=== PATIENT | male | born 1950 | race Caucasian/White ===

== ENCOUNTER 2018-04-18 08:02 | Observation (INO) ==
--- NOTE | 2018-04-18 08:09 | PDOC ---
Chest Pain HPI - General Chief Complaint: Chest Pain Stated Complaint: SYNCOPAL EPISODE Date Seen by Provider: 04/18/18 Time Seen by Provider: 08:09 Source: Patient Exam Limitations: POSITIVE: No limitations Treatment Prior to Arrival: REPORTS: None - History of Present Illness Initial Comments: Patient is a 68-year-old male who presents to the emergency department with syncopal events. Patient reports she's had at least 3 of last week. 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 Patient reports he gets lightheaded and dizzy and passes out. Patient reports afterwards he feels like he is "rolling". Patient reports he has had some associated chest discomfort. And some minimal back pain. Patient also describes some component of headache. He reports that he gets nauseous and has minimal abdominal discomfort. 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 - Patient Home Medications Home Medications: Home Medications rivaroxaban 20 mg tablet 20 mg PO QDAY #30 tab 03/10/18 - Patient Allergies Allergies/Adverse Reactions: Allergies Allergy/AdvReac Type Severity Reaction Status Date / Time latex Allergy Severe eczema Verified 04/18/18 08:23 ciprofloxacin Allergy Intermediate RASH Verified 04/18/18 08:23 Penicillins Allergy Intermediate ITCHING Verified 04/18/18 08:23 Past Medical History - heen HEENT History: Other (please comment) Additional HEENT History: Rt eye surgery Cardiovascular History: Denies History Respiratory History: Denies History Gastrointestinal History: Denies History Genitourinary History: Denies History Endocrine History: Denies History Musculoskeletal History: Joint Pain Prosthesis or Implant: No Neurological History: Denies History Blood Disorders: Other (please comment) Additional Blood Disorders History: PULM EMBOLISM Psychiatric History: Denies History Cancer History: Denies History History of MDRO: No Alcohol Use: Rarely In the Past 12 Months, Have Used or Abuse Any Substance: None Previous Surgical History: Yes Type / Date of Surgery: KNEE, EYE Significant Family History: No pertinent family hx Past Medical History Reviewed: Reviewed - No Changes ROS - Limitations ROS Limitations: No Limitations Constitution: DENIES: Chills, Fever Cardiovascular: REPORTS: Chest Pain Respiratory: REPORTS: Denies Resp Symptoms Neurological: REPORTS: Headache, Dizziness, Fainting Gastrointestinal: REPORTS: Abdominal Pain, Nausea Endocrine: REPORTS: Denies Symptoms Musculoskeletal: REPORTS: Back Pain Genitourinary: REPORTS: Denies Symptoms Eyes: REPORTS: Denies Symptoms ENT: REPORTS: Denies Symptoms Skin: REPORTS: Denies Skin Symptoms Lympathic: REPORTS: Denies Lympathic Symptoms Immunologic: POSITIVE: Denies Symptoms Psychiatric: POSITIVE: Denies Psych Symptoms Chest Pain PE - General Appearance General Appearance: REPORTS: Alert, Cooperative, No Acute Distress, No Evidence of Trauma - HEENT HEENT: POSITIVE: Head Inspection Nml, Eyes Inspection Nml, PERRL, EOMI - Neck Neck: REPORTS: Normal Inspection - Respiratory Respiratory: REPORTS: No Respiratory Distress, Breath Sounds Normal, Chest Non- Tender. DENIES: Wheezes - Cardiovascular Cardiovascular: REPORTS: Regular Rate and Rhythm, Heart Sounds Normal, Equal Pulses, Strong Pulses, No Murmur, No Gallop - Abdomen Additional Abdominal Details: Soft no tenderness to palpation - Skin Skin: REPORTS: Intact, Normal For Race, Dry - Extremities Additional Extremities Details: No edema in the lower extremities - Neurological / Psychological Neurological: POSITIVE: Affect Apporpriate, Oriented X3, Other (Finger to nose testing is normal.) Chest Pain Progress - Results Reviewed by me CBC and BMP: 04/18/18 08:20 04/18/18 08:20 Lab Results:: Laboratory Results 04/18/18 04/18/18 04/18/18 08:20 08:20 08:20 WBC 6.30 RBC 5.82 Hgb 18.4 H Hct 51.4 MCV 88.3 MCH 31.6 H MCHC 35.8 RDW Std Deviation 41.7 RDW Coeff of Joao 13.0 Plt Count 161 MPV 10.7 Immature Gran % (Auto) 0.6 Neut % (Auto) 61.4 Lymph % (Auto) 31.1 [place] % (Auto) 4.6 L Eos % (Auto) 1.7 Baso % (Auto) 0.6 Immature Gran # (Auto) 0.04 Neut # (Auto) 3.86 Lymph # (Auto) 1.96 [place] # (Auto) 0.29 L Eos # (Auto) 0.11 Baso # (Auto) 0.04 WBC Morphology Comment Normal morphology Plt Morphology Comment Normal morphology RBC Morph Comment Normal morphology PT 10.2 INR 1.00 Sodium 141 Potassium 4.1 Chloride 105 Carbon Dioxide 24 Anion Gap 12 BUN 23 H Creatinine 1.0 Estimated GFR > 60 BUN/Creatinine Ratio 23.00 H Glucose 321 H Calculated Osmolality 307.0 H Calcium 9.9 Magnesium 2.0 Total Bilirubin 1.0 AST 36 ALT 30 Alkaline Phosphatase 96 Troponin I Handheld Total Protein 6.8 Albumin 4.2 Globulin 2.6 Albumin/Globulin Ratio 1.60 04/18/18 08:20 WBC RBC Hgb Hct MCV MCH MCHC RDW Std Deviation RDW Coeff of Joao Plt Count MPV Immature Gran % (Auto) Neut % (Auto) Lymph % (Auto) [place] % (Auto) Eos % (Auto) Baso % (Auto) Immature Gran # (Auto) Neut # (Auto) Lymph # (Auto) [place] # (Auto) Eos # (Auto) Baso # (Auto) WBC Morphology Comment Plt Morphology Comment RBC Morph Comment PT INR Sodium Potassium Chloride Carbon Dioxide Anion Gap BUN Creatinine Estimated GFR BUN/Creatinine Ratio Glucose Calculated Osmolality Calcium Magnesium Total Bilirubin AST ALT Alkaline Phosphatase Troponin I Handheld 0.000 Total Protein Albumin Globulin Albumin/Globulin Ratio - Patient's Progress MDM / ED Course: Patient is a 68-year-old male who presents to the emergency department with sy ncope and chest discomfort. Vital signs are unremarkable and examination of charts overall well-appearing male in no acute distress. EKG demonstrates no evidence of acute ST changes. Initial troponin is negative. No evidence of arrhythmia on monitoring her EKG. Chemistry panel CT scan of the head and chest external pending at this time. CBC was unremarkable. Patient's care is turned over to oncoming physician for further evaluation. Patient Care Time - Estimated PCT Patient Care Time (In Minutes): 35 Vital Signs - Recent Vital Signs Vital Signs: Vital Signs (Last 8 hours) Temp Pulse Pulse Pulse Pulse Resp BP 04/18/18 08:02 97.0 F 73 70 73 73 18 158/93 Pulse Ox 04/18/18 08:02 92 - VS Reviewed Vital Signs Reviewed: Yes Discharge Clinical Impression: Syncope Qualifiers: Syncope type: unspecified Qualified Code(s): R55 - Syncope and collapse Chest pain Qualifiers: Chest pain type: unspecified Qualified Code(s): R07.9 - Chest pain, unspecified Follow Up With: NONE,NONE [Primary Care Provider] -
--- NOTE | 2018-04-18 08:11 | EKG ---
[address] [address] Measurements Intervals [place] Rate: 70 P: 30 VT: 140 QRS: 7 QRSD: 106 T: 46 QT: 395 QTc: 415 Interpretive Statements SINUS RHYTHM WITH SINUS ARRHYTHMIA NONSPECIFIC T-WAVE ABNORMALITY Compared to ECG 08/02/2017 10:53:55 T-wave abnormality now present Electronically Signed On 04-18-18 11:12:07 MDT by Alberto Martinez MD [email or web address]
[2018-04-18 08:22] LABS: BASOPHILS # (AUTO) 0.04 10*3/UL; BASOPHILS % (AUTO) 0.6 % (0-1); EOSINOPHILS # (AUTO) 0.11 10*3/UL; EOSINOPHILS % (AUTO) 1.7 % (0-8); Hematocrit [HCT] 51.4 % (42.0-52.0); Hemoglobin [HGB] 18.4 g/dL (14.0-18.0); LYMPHOCYTES # (AUTO) 1.96 10*3/uL; MEAN CORPUSCULAR HEMOGLOBIN 31.6 PG (27-31); MEAN CORPUSCULAR HGB CONC 35.8 g/dL (33-37); MEAN CORPUSCULAR VOLUME 88.3 FL (80-90); MEAN PLATELET VOLUME 10.7 FL (7.4-12.2); MONOCYTES # (AUTO) 0.29 10*3/UL (0.3-0.8); MONOCYTES % (AUTO) 4.6 % (5-15); NEUTROPHILS # (AUTO) 3.86 10*3/UL; NEUTROPHILS % (AUTO) 61.4 % (50-80); RED BLOOD COUNT 5.82 10^6/uL (4.70-6.10)
[2018-04-18 08:29] LABS: PLATELET MORPHOLOGY COMMENT NORMAL MORPHOLOGY (NORM); RBC MORPHOLOGY COMMENT NORMAL MORPHOLOGY (NORM); WBC MORPHOLOGY COMMENT NORMAL MORPHOLOGY (NORM)
[2018-04-18 08:56] LABS: BLOOD UREA NITROGEN 23 mg/dL (7-22); SERUM ALBUMIN 4.2 g/dL (3.5-4.8)
--- NOTE | 2018-04-18 08:56 | DI ---
AP CHEST X-RAY, 04/18/2018 8:09 AM : Clinical History: Syncope. Previous Exam: None at this facility. Soft Tissues: No acute soft tissue abnormality. Bones: Normal. Heart: Normal heart. Lungs: No infiltrates. Mild discoid atelectasis in the left costophrenic angle. Effusion(s): None. Mediastinum: Normal mediastinum. Nodules: No pulmonary nodules. Reading: Normal chest x-ray.
--- NOTE | 2018-04-18 09:40 | DI ---
CT HEAD SCAN WITHOUT IV CONTRAST, 04/18/2018 8:21 AM : Clinical History: Headache. Dizziness. Syncope. The patient is anticoagulated. Previous Exam: 07/17/2011. Technique: Performed from the foramen magnum to vertex without IV contrast. Contrast Volume: None. 4th Ventricle: Normal. 3rd Ventricle: Mildly dilated, but normal for age. Lateral Ventricles: Mildly dilated, but normal for age. Sella: Normal size and normal pituitary gland. Cerebrum: Normal. No acute intracranial hemorrhagic focus. No acute bland infarct. No small vessel is chemic disease. Cerebellum: Normal. No cerebellopontine angle mass. Normal cerebellar tonsillar position. Brainstem: Normal. Atrophy: Mild cerebellar and cerebral atrophy. Extracerebral Mantles/Midline Shift: No extracerebral mantle or dural lesion. No midline shift. Sinuses: Mucosal thickening of the left maxillary sinus. Skull: Intact. READIN. There is no acute intracranial hemorrhagic focus. No acute bland infarct. 2. Mild cerebellar and cerebral atrophy.
[2018-04-18] MEDS ORDERED: LIDOCAINE W/ SODIUM BICARB 0.5 ML SYR SUBD PRN (11:32)
[2018-04-18] MEDS ORDERED: Sodium Chloride 0.9% 1,000 ML PRIMARY IV ONE (11:32)
[2018-04-18 11:47] LABS: HEMOGLOBIN A1C 11.57 % (4.2-6.0)
--- NOTE | 2018-04-18 12:57 | PDOC ---
HPI - History of Present Illness Date of Service: 04/18/18 Time of Service: 12:52 Chief Complaint: passing out History of Present Illness: This very and 68-year-old male with history of prior DVT left lower extremity, and remote history of prior DVTs, comes in accompanied by his stating that he has had some episodes where he has been passing out. They've been happening more frequently the past two weeks. He did not actually have a syncopal episode today, but states that these episodes started around 2 years ago. His first one happened standing on a scaffold and walking into an open window in his home. He states the events over the past 2 weeks or very similar to that in which he's had some headaches, they're been somewhat migratory in terms of location, occasionally not feeling well prior to that but not consistently, and he states that he finds himself down on the ground. He denies any chest pain or shortness breath with these episodes. He states that he has some vertigo that persists for about 10 minutes or longer with each episode. No loss of bowel or bladder and he has recall of the events. 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 Given these continued episodes, the patient came in for evaluation today. He denies any chest pain, shortness breath, nausea or vomiting to me. He does get nauseous with these episodes however. He was found to have a high blood sugar and I did a hemoglobin A1c and it was actually well over 11. He does note that he has had about 38 pounds of weight loss, and urinates frequently at night but he attributed that to his prostate. He has minimal to no postural symptoms, and his orthostatic blood pressures were negative. He did state that he felt somewhat dizzy when he was standing up, but had no change in his blood pressure. He feels like he has a little worsening of symptoms when he turns his head to the left. He complains of tinnitus daily. There is no prodromal symptoms. He states that he had 2 episodes recently where he was going to urinate at nighttime, but he states that he was not straining with urination. He's never had any constipation induced syncopal episodes. He has not had any loss of urine or tongue biting with these episodes. His position at different times of these syncopal episodes has been sitting or standing. Past Medical History Medical History: 1. History of DVTs, recent one in the left lower extremity Surgical History: 1. Has had 3 knee scopes, one on the right and 2 on the left. 2. Carpal tunnel release. 3. Remote eye surgery for lazy eye Pertinent Family History: Father of lung cancer. Mother of congestive heart failure. Tobacco Use: Former Smoker (Quit in 1979) In the Past 12 Months, Have Used or Abuse Any of the Following Substance: None Alcohol Use: Occasionally Medication / Allergies Home Medications: Home Medications Medication Instructions Recorded Confirmed Type rivaroxaban 20 mg tablet 20 mg PO QDAY #30 tab 03/10/18 04/18/18 Rx Allergies/Adverse Reactions: Allergies Allergy/AdvReac Type Severity Reaction Status Date / Time latex Allergy Severe eczema Verified 04/18/18 08:23 ciprofloxacin Allergy Intermediate RASH Verified 04/18/18 08:23 Penicillins Allergy Intermediate ITCHING Verified 04/18/18 08:23 Review of Systems - Review of Systems All Systems: Reviewed & No Additional Complaints Except as Stated (I did a 12 point review systems and it was negative other than that discussed below and in the history of present illness.) - Genitourinary Genitourinary: REPORTS: Nocutria - Neurological Neurologic: REPORTS: Headache (Over the past 2 weeks.) Exam - Vitals Vital Signs: Vital Signs Temperature 97.8 F Temperature Source Temporal Artery Scan Pulse Rate [Pulse Oximeter 67 Right] Pulse Rate [Telemetry] 73 Pulse Rate [Bilateral Radial] 70 Pulse Rate [Standing] 71 Pulse Rate [Sitting] 67 Pulse Rate [Lying] 79 Pulse Rate 73 Respiratory Rate 19 Blood Pressure [Standing] 118/75 Blood Pressure [Sitting] 126/77 Blood Pressure [Lying] 123/70 Blood Pressure [Left Arm] 126/77 Pulse Ox 95 Oxygen Delivery Method Room Air Height 6 ft 3 in Weight 260 lb - General General Appearance: No Acute Distress, Cooperative - Head Head Exam: Normal Inspection, Normocephalic, Atraumatic - Eye Eye Exam: POSITIVE: No Scleral Icterus - ENT ENT Exam: POSITIVE: Mucous Membranes Moist - Neck Neck Exam: Normal Inspection, No Tenderness, No Lymphadenopathy, No Thyromegaly, JVP is not Raised - Respiratory Respiratory Exam: POSITIVE: Clear to Auscultation - Bilaterally, Breathing Non Labored, Normal to Percussion and Palpation - Cardiovascular Cardiovascular Exam: POSITIVE: RRR, No Murmur, No Clicks, No Gallops, No Rubs, No JVD Additional Cardiovascular Details: No carotid bruits - GI/Abdominal GI/Abdominal Exam: POSITIVE: Normal Bowel Sounds, Non Tender, Non Distended, So ft - Rectal Rectal Exam: POSITIVE: Deferred - External Exam: POSITIVE: Deferred Exam: POSITIVE: Deferred - Extremities Extremities Exam: POSITIVE: No Clubbing Present, No Edema Present, No Cyanosis Present Additional Extremities Exam Details: Has chronic venous stasis changes from prior injury in which he was smashed with concrete in the left lower extremity - Back Back Exam: POSITIVE: No CVA Tenderness - Neurological Neurological Exam: POSITIVE: Alert, Oriented x 3, CN II-XII Intact, No Facial Droop, Speech Intact / Clear, Moves All Extremities Equally - Psychiatric Psychiatric Exam: POSITIVE: Normal Affect, Normal Mood Results - Labs CBC and BMP: 04/18/18 08:20 04/18/18 08:20 Additional Lab Results: Laboratory Results 04/18/18 04/18/18 04/18/18 08:10 08:10 08:20 WBC 6.30 RBC 5.82 Hgb 18.4 H Hct 51.4 MCV 88.3 MCH 31.6 H MCHC 35.8 RDW Std Deviation 41.7 RDW Coeff of Joao 13.0 Plt Count 161 MPV 10.7 Immature Gran % (Auto) 0.6 Neut % (Auto) 61.4 Lymph % (Auto) 31.1 [place] % (Auto) 4.6 L Eos % (Auto) 1.7 Baso % (Auto) 0.6 Immature Gran # (Auto) 0.04 Neut # (Auto) 3.86 Lymph # (Auto) 1.96 [place] # (Auto) 0.29 L Eos # (Auto) 0.11 Baso # (Auto) 0.04 WBC Morphology Comment Normal morphology Plt Morphology Comment Normal morphology RBC Morph Comment Normal morphology PT INR Sodium Potassium Chloride Carbon Dioxide Anion Gap BUN Creatinine Estimated GFR BUN/Creatinine Ratio Glucose Mean Blood Glucose 299.281 Hemoglobin A1c 11.57 H Calculated Osmolality Calcium Magnesium Total Bilirubin AST ALT Alkaline Phosphatase Troponin I Handheld Total Protein Albumin Globulin Albumin/Globulin Ratio TSH 3.06 Free T4 1.23 04/18/18 04/18/18 04/18/18 08:20 08:20 08:20 WBC RBC Hgb Hct MCV MCH MCHC RDW Std Deviation RDW Coeff of Joao Plt Count MPV Immature Gran % (Auto) Neut % (Auto) Lymph % (Auto) [place] % (Auto) Eos % (Auto) Baso % (Auto) Immature Gran # (Auto) Neut # (Auto) Lymph # (Auto) [place] # (Auto) Eos # (Auto) Baso # (Auto) WBC Morphology Comment Plt Morphology Comment RBC Morph Comment PT 10.2 INR 1.00 Sodium 141 Potassium 4.1 Chloride 105 Carbon Dioxide 24 Anion Gap 12 BUN 23 H Creatinine 1.0 Estimated GFR > 60 BUN/Creatinine Ratio 23.00 H Glucose 321 H Mean Blood Glucose Hemoglobin A1c Calculated Osmolality 307.0 H Calcium 9.9 Magnesium 2.0 Total Bilirubin 1.0 AST 36 ALT 30 Alkaline Phosphatase 96 Troponin I Handheld 0.000 Total Protein 6.8 Albumin 4.2 Globulin 2.6 Albumin/Globulin Ratio 1.60 TSH Free T4 - EKG Data -: EKG Interpreted by Me Rate: Normal EKG Shows Normal: Sinus Rhythm - EKG Data EKG Interpretation: Nonspecific ST-T Wave Changes (T-wave flattening in aVL) - Imaging Status: Image Reviewed by Me (Chest x-ray appears negative on my view for acute cardiopulmonary disease process. CT scan of head negative for acute bleed.) Assessment and Plan - Patient Problems (1) Syncope Current Visit: Yes Status: Acute Code(s): R55 - Syncope and collapse Qualifiers: Syncope type: unspecified Qualified Code(s): R55 - Syncope and collapse (2) Poorly controlled type 2 diabetes mellitus Current Visit: Yes Status: Acute Code(s): E11.65 - Type 2 diabetes mellitus with hyperglycemia (3) History of DVT of lower extremity Current Visit: Yes Status: Acute Code(s): Z86.718 - Personal history of other venous thrombosis and embolism - Assessment / Plan Additional Assessment/Plan Details: Overall, I suspect this is probably neurocardiogenic syncope neurally mediated or vasovagal syncope, but he has some features that do not necessarily fit that pattern. It could also be related to newly diagnosed diabetes. He states however that people tested him for years but he's never been formally diagnosed with diabetes. With some of the dizziness and symptoms getting worse with head turning, I think we should check carotid arteries and get an MRI scan of the brain as well as MRA scan of head and neck. I'm going to do troponins to make sure not dealing with a myocardial infarction although I doubt that some cases troponin is initially is negative. Patient may warrant a stress test. Echocardiogram to evaluate structural heart disease and valvular abnormalities. Telemetry monitoring here. We will start dietary interventions and dietary education for diabetes as well as institute metformin most likely for diabetes. We may have to wait until the hospital stay is done however as I would like to not have issues with metformin and lactic acidosis in the setting of testing. Patient is full code. Nothing in the electrolytes point to any discernible reason for his syncopal episodes. Plan above discussed with the patient and his and they agreed to proceed.
[2018-04-18] MEDS: Sodium Chloride 0.9% 1,000 ML PRIMARY IV SCH ×2 (13:50→21:55)
--- NOTE | 2018-04-18 15:10 | DI ---
MR ANGIOGRAPHY OF THE [place] [facility] [place], 04/18/2018 12:10 PM: Clinical History: Syncope. Previous Exam: None at this facility. Technique: High resolution axial 3D thin slice time of flight scans are performed for the arterial ph ase. 3D MIPS reconstructions are obtained. Vertebral Arteries: The vertebral arteries are not visualized on this study. The patient does have an MR angiogram of the neck. Basilar Artery: Normal. There is no basilar tip aneurysm or aneurysm arising from the vertebral-basil ar branches. Posterior Communicating Arteries: There is a small normal right posterior communicating artery and no discernible left posterior communicating artery. Anterior Communicating Artery: Normal anterior communicating artery. A1-A2 Segments of Anterior Cerebral Arteries: Normal. The left A1 segment is diminutive in size but n ormal. M1-M3 Segments of Middle Cerebral Arteries: Normal. Reading: Normal MR angiogram scan of the [place] [facility] [place].
--- NOTE | 2018-04-18 15:55 | DI ---
MR ANGIOGRAM OF THE NECK, 04/18/2018 12:10 PM: Clinical History: Syncope. Previous Exam: None at this facility. Axial 3D TOF and coronal T-SLIP images are reconstructed into a 3D MIP format. Scans are performed from below the sternal notch to of the neck to the base of the skull without cont rast. The right common carotid artery is normal from its origin to the bifurcation. The left common carotid origin is normal and the proximal 3 cm are also normal. From this point to the base of the neck, the artery is not well visualized but does show flow. The left common carotid artery distal to this poin t to the bifurcation is normal. The internal and external carotid arteries in the neck region are nor mal. The internal carotid arteries from the base of the skull to the cavernous sinuses are also estefany l. The innominate artery is normal. The left subclavian artery is not optimally visualized from 1 cm distal to its origin to the origin of the left vertebral artery. The difficulty in visualizing the pr oximal portions of the left common carotid artery and the left subclavian artery are probably all sec ondary to artifacts. However, the left vertebral artery is quite large. Both vertebral arteries are v isualized and are normal. The left vertebral artery is the dominant vessel. READIN. There is a large dominant left vertebral artery that is normal from the origin to the base of the skull. The left subclavian artery just proximal to the left vertebral artery is not well visualized. Because of the history of syncope, measurement of blood pressures of both arms are recommended. If t here is diminished pulses and decreased blood pressure in the left arm, then the possibility of a lef t subclavian steal should be considered. In that case, a CT angiogram of the neck as well as ultrasou nd of the carotid and vertebral arteries would be recommended to establish a diagnosis of a left subc lavian steal syndrome. 2. The proximal left common carotid artery also is not well visualized probably secondary to artifac ts. The right common carotid artery from its origin to the bifurcation and the left common carotid ar tomer above the origin to the bifurcation are normal. The internal and external carotid arteries are u nremarkable in are visualized through the neck and up to the base of the skull. 3. Both vertebral arteries are normal and the left vertebral artery is large and is the dominant ves roque.
--- NOTE | 2018-04-18 16:34 | DI ---
MRI BRAIN SCAN WITHOUT IV CONTRAST, 04/18/2018 12:10 PM: Clinical History: Syncope. Prior Exam: None at this facility. Comparison Exam: CT head scan without contrast from earlier today. Sequences: Sagittal T1; Axial WILMER T2 and FLAIR. Axial diffusion weighted images with ADC mapping. 4th Ventricle: Normal. 3rd Ventricle: Mildly dilated, but normal for age. Lateral Ventricles: Mildly dilated, but normal for age. Sella: Normal size and normal pituitary gland. Cerebrum: Normal. No evidence of an acute hemorrhagic or bland infarct. No small vessel ischemic dise ase. Cerebellum: Normal. No cerebellopontine angle mass. Cerebellar Tonsils: Normal position. Brainstem: Normal. Diffusion Weighted Imaging: Normal. Atrophy: Mild cerebellar and cerebral atrophy. Extracerebral Mantles/Midline Shift: No extracerebral mantle or dural lesion. No midline shift. Sinuses: Left maxillary sinus mucosal thickening with some hypointensities present most likely repres enting small polyps. Readin. No evidence of an acute hemorrhagic or bland infarct. No small vessel ischemic disease. 2. Mild cerebral and cerebellar atrophy. 3. Normal diffusion weighted imaging with ADC mapping.
[2018-04-18] MEDS ORDERED: Rivaroxaban Tab 10 MG TAB PO SCH (17:00)
[2018-04-18] MEDS ORDERED: Insulin Glargine SoloStar Inj 100 UNIT/ML INSULN.PEN SUBCUT ONE (21:25)
[2018-04-18] MEDS ORDERED: SUMAtriptan Tab 25 MG TAB PO ONE (21:26)
[2018-04-19 06:58] VITALS: RESP 18
[2018-04-19] MEDS ORDERED: metFORMIN 500 MG TABLET PO ONE ×2 (08:00→11:45)
--- NOTE | 2018-04-19 09:20 | DI ---
DUPLEX COLOR DOPPLER CAROTID ULTRASOUND, 04/18/2018 5:24 PM: Clinical History: Syncope Previous Exam: None at this facility. Technique: 2D real time imaging supplemented with duplex color doppler ultrasound imaging. Right Common Carotid Artery: 2-D Real Time Imaging: Normal right common carotid artery with minimal plaquing in the carotid bulb. Peak Systolic Velocity: 110 cm/sec. Diameter Stenosis: 0-49% stenosis. Right Internal Carotic Artery: 2-D Real Time Imaging: Normal. Peak Systolic Velocity: 87 cm/sec. Diameter Stenosis: 0-49% stenosis. Right External Carotid Artery: 2-D Real Time Imaging: Normal. Peak Systolic Velocity: 115 cm/sec. Diameter Stenosis: 0-49% stenosis. Left Common Carotid Artery: 2-D Real Time Imaging: Normal. Peak Systolic Velocity: 120 cm/sec. Diameter Stenosis: 0-49% stenosis. Left Internal Carotic Artery: 2-D Real Time Imaging: Normal. Peak Systolic Velocity: 88 cm/sec. Diameter Stenosis: 0-49% stenosis. Left External Carotid Artery: 2-D Real Time Imaging: Normal. Peak Systolic Velocity: 111 cm/sec. Diameter Stenosis: 0-49% stenosis. Right Vertebral Artery: Flow Direction: Antegrade flow. Peak Systolic Velocity: 50 cm/sec. Diameter Stenosis: 0-49% stenosis. Left Vertebral Artery: Flow Direction: Antegrade flow. Peak Systolic Velocity: 74 cm/sec. Diameter Stenosis: 0-49% stenosis. Readin. There is no hemodynamically significant stenosis of either carotid system. 2. There is antegrade flow through both vertebral arteries. This eliminates the possibility of a lef t subclavian steal syndrome. Cardiac rhythm is regular.
[2018-04-19 11:41] VITALS: O2SAT 92
[2018-04-19 11:42] VITALS: BP 141/82; TEMP 97.2
--- NOTE | 2018-04-19 12:39 | DCSUMMARY ---
Hospitalization Summary Admit Date: 04/18/2018 Discharge Date: 04/19/18 Primary Diagnosis:: syncope, probably neural mediated with hyperglycemia Hospital Course: This is a very pleasant 68-year-old male that was admitted in the setting of syncopal episodes. Workup thus far has been negative for stroke, negative for carotid artery disease, no evidence of orthostatic hypotension, but he is newly onset/newly diagnosed diabetes mellitus type II. His hemoglobin A1c was almost 12. I suspect the high blood sugars are causing some dizziness, lightheadedness, and symptoms of polyuria. We did not see any arrhythmias with cardiac monitoring, but will order a Holter monitor when the patient leaves the hospital. An echocardiogram will be done as an outpatient as I do not have the capability of doing that in the hospital without a fresh foods technician. I will also order a Lexiscan stress test to look for potential coronary artery disease although this would be rare in the setting of syncope and the patient certainly had no anginal chest pain symptoms here and no shortness breath and now those symptoms with his syncopal episodes. Given diabetes as a coronary heart disease risk equivalent, I think it makes sense to conduct a stress test to see. That will be done as an outpatient as well. Again the option to the patient and his of staying here for these tests but they agreed that doing an outside the hospital seems to be the best option for them. We provided diabetes education prior to discharge as well as a glucose monitor, and the patient will go home on metformin starting at 1 tablet daily. Today, headache is significantly improved. No nausea or vomiting. No further syncopal episodes. Patient is "ready to go home". Assessment and Plan: 1. As per discharge assessments noted 2. Disposition: Patient is discharged home. 3. Condition on discharge, stable and improved. 4. Diet: regular diet 5. Activities: resume normal activities 6. Follow-Up: 1. Medical office building follow-up will be scheduled within approximately 7 days 7. Medications at the Time of Discharge: Home Medications Medication Instructions Recorded Confirmed Type rivaroxaban 20 mg tablet 20 mg PO QDAY #30 tab 03/10/18 04/18/18 Rx Multivitamin Tab [Thera Tab] 1 tab PO DAILY 04/19/18 04/19/18 History metFORMIN Tab [Glucophage Tab] 500 mg PO BID MEALS #60 tab 04/19/18 Rx This is an observation discharge Exam - Vitals Vital Signs: Vital Signs Temperature 97.2 F Temperature Source Temporal Artery Scan Pulse Rate [Pulse Oximeter 67 Right] Pulse Rate [Telemetry] 73 Pulse Rate [Bilateral Radial] 70 Pulse Rate [Standing] 83 Pulse Rate [Sitting] 69 Pulse Rate [Lying] 62 Pulse Rate 58 Respiratory Rate 18 Blood Pressure [Right Arm] 141/82 Blood Pressure [Left Arm] 126/77 Pulse Ox 92 Oxygen Flow Rate 2 Oxygen Delivery Method Nasal Cannula Height 6 ft 3 in Weight 256 lb 6.4 oz - General General Appearance: No Acute Distress, Cooperative - Eye Eye Exam: POSITIVE: No Scleral Icterus - Neck Neck Exam: JVP is not Raised - Respiratory Respiratory Exam: POSITIVE: Clear to Auscultation - Bilaterally, Breathing Non Labored - Cardiovascular Cardiovascular Exam: POSITIVE: RRR, No Murmur, No Clicks, No Gallops, No Rubs, No JVD - GI/Abdominal GI/Abdominal Exam: POSITIVE: Normal Bowel Sounds, Non Tender, Non Distended, Soft - Extremities Extremities Exam: POSITIVE: No Clubbing Present, No Edema Present, No Cyanosis Present - Neurological Neurological Exam: POSITIVE: Alert, Oriented x 3, No Facial Droop, Speech Intact / Clear, Moves All Extremities Equally Data Peritnent Studies: Laboratory Results 04/18/18 04/18/18 04/19/18 15:20 21:21 05:15 Troponin I < 0.012 < 0.012 NT-Pro-B Natriuret Pep 160 H 04/18/18 04/18/18 04/18/18 08:10 08:10 08:20 WBC 6.30 Hgb 18.4 H Hct 51.4 Plt Count 161 PT INR Sodium Potassium Chloride Carbon Dioxide Anion Gap BUN Creatinine Glucose Mean Blood Glucose 299.281 Hemoglobin A1c 11.57 H Calculated Osmolality Calcium Magnesium Total Bilirubin AST ALT Alkaline Phosphatase Troponin I Handheld Total Protein Albumin Globulin Albumin/Globulin Ratio TSH 3.06 Free T4 1.23 04/18/18 04/18/18 04/18/18 08:20 08:20 08:20 WBC Hgb Hct Plt Count PT 10.2 INR 1.00 Sodium 141 Potassium 4.1 Chloride 105 Carbon Dioxide 24 Anion Gap 12 BUN 23 H Creatinine 1.0 Glucose 321 H Mean Blood Glucose Hemoglobin A1c Calculated Osmolality 307.0 H Calcium 9.9 Magnesium 2.0 Total Bilirubin 1.0 AST 36 ALT 30 Alkaline Phosphatase 96 Troponin I Handheld 0.000 Total Protein 6.8 Albumin 4.2 Globulin 2.6 Albumin/Globulin Ratio 1.60 TSH Free T4 Procedures: [address] [facility] [place] [address] PH: DD: [phone] FAX: [phone] ~DIAGNOSTIC IMAGING REPORT~ Patient: MIRANDA BARAJAS : 1950 Sex: M Age: 68 Exam Name: US Carotids Bilateral Exam Date: 04/18/18 Report # : [id number] CPT Code: 57770 EMR/MR #: [id number] Ordering: RUPESH LEY Admiting: RUPESH LEY DO Primary: NONE,NONE Attending: RUPESH LEY DO Signed DUPLEX COLOR DOPPLER CAROTID ULTRASOUND, 04/18/2018 5:24 PM: Clinical History: Syncope Previous Exam: None at this facility. Technique: 2D real time imaging supplemented with duplex color doppler ultrasound imaging. Right Common Carotid Artery: 2-D Real Time Imaging: Normal right common carotid artery with minimal plaquing in the carotid bulb. Peak Systolic Velocity: 110 cm/sec. Diameter Stenosis: 0-49% stenosis. Right Internal Carotic Artery: 2-D Real Time Imaging: Normal. Peak Systolic Velocity: 87 cm/sec. Diameter Stenosis: 0-49% stenosis. Right External Carotid Artery: 2-D Real Time Imaging: Normal. Peak Systolic Velocity: 115 cm/sec. Diameter Stenosis: 0-49% stenosis. Left Common Carotid Artery: 2-D Real Time Imaging: Normal. Peak Systolic Velocity: 120 cm/sec. Diameter Stenosis: 0-49% stenosis. Left Internal Carotic Artery: 2-D Real Time Imaging: Normal. Peak Systolic Velocity: 88 cm/sec. Diameter Stenosis: 0-49% stenosis. Left External Carotid Artery: 2-D Real Time Imaging: Normal. Peak Systolic Velocity: 111 cm/sec. Diameter Stenosis: 0-49% stenosis. Right Vertebral Artery: Flow Direction: Antegrade flow. Peak Systolic Velocity: 50 cm/sec. Diameter Stenosis: 0-49% stenosis. Left Vertebral Artery: Flow Direction: Antegrade flow. Peak Systolic Velocity: 74 cm/sec. Diameter Stenosis: 0-49% stenosis. Readin. There is no hemodynamically significant stenosis of either carotid system. 2. There is antegrade flow through both vertebral arteries. This eliminates the possibility of a left subclavian steal syndrome. Cardiac rhythm is regular. Dictated By: 04/19/18 0909 MAINE CANNON MD. Signed By: [address] [facility] [place] [address] PH: DD: [phone] FAX: [phone] ~DIAGNOSTIC IMAGING REPORT~ Patient: MIRANDA BARAJAS : 1950 Sex: M Age: 68 Exam Name: MRI MRA Neck WO Contrast Exam Date: 04/18/18 Report # : [id number] CPT Code: 86331 EMR/MR #: [id number] Ordering: RUPESH LEY Admiting: RUPESH LEY DO Primary: NONE,NONE Attending: RUPSEH LEY DO Signed MR ANGIOGRAM OF THE NECK, 04/18/2018 12:10 PM: Clinical History: Syncope. Previous Exam: None at this facility. Axial 3D TOF and coronal T-SLIP images are reconstructed into a 3D MIP format. Scans are performed from below the sternal notch to of the neck to the base of the skull without contrast. The right common carotid artery is normal from its origin to the bifurcation. The left common carotid origin is normal and the proximal 3 cm are also normal. From this point to the base of the neck, the artery is not well visualized but does show flow. The left common carotid artery distal to this point to the bifurcation is normal. The internal and external carotid arteries in the neck region are normal. The internal carotid arteries from the base of the skull to the cavernous sinuses are also normal. The innominate artery is normal. The left subclavian artery is not optimally visualized from 1 cm distal to its origin to the origin of the left vertebral artery. The difficulty in visualizing the proximal portions of the left common carotid artery and the left subclavian artery are probably all secondary to artifacts. However, the left vertebral artery is quite large. Both vertebral arteries are visualized and are normal. The left vertebral artery is the dominant vessel. READIN. There is a large dominant left vertebral artery that is normal from the origin to the base of the skull. The left subclavian artery just proximal to the left vertebral artery is not well visualized. Because of the history of syncope, measurement of blood pressures of both arms are recommended. If there is diminished pulses and decreased blood pressure in the left arm, then the possibility of a left subclavian steal should be considered. In that case, a CT angiogram of the neck as well as ultrasound of the carotid and vertebral arteries would be recommended to establish a diagnosis of a left subclavian steal syndrome. 2. The proximal left common carotid artery also is not well visualized probably secondary to artifacts. The right common carotid artery from its origin to the bifurcation and the left common carotid artery above the origin to the bifurcation are normal. The internal and external carotid arteries are unremarkable in are visualized through the neck and up to the base of the skull. 3. Both vertebral arteries are normal and the left vertebral artery is large and is the dominant vessel. Dictated By: 04/18/18 1537 MAINE CANNON MD. Signed By: 04/18/18 1553 MAINE CANNON MD. [address] [facility] [place] [address] PH: DD: [phone] FAX: [phone] ~DIAGNOSTIC IMAGING REPORT~ Patient: MIRANDA BARAJAS : 1950 Sex: M Age: 68 Exam Name: MRI MRA Head WO Contrast Exam Date: 04/18/18 Report # : [id number] CPT Code: 09025 EMR/MR #: [id number] Ordering: RUPESH LEY Admiting: RUPESH LEY DO Primary: NONE,NONE Attending: RUPESH LEY DO Signed MR ANGIOGRAPHY OF THE [place] [facility] [place] [facility] [place], 04/18/2018 12:10 PM: Clinical History: Syncope. Previous Exam: None at this facility. Technique: High resolution axial 3D thin slice time of flight scans are performed for the arterial phase. 3D MIPS reconstructions are obtained. Vertebral Arteries: The vertebral arteries are not visualized on this study. The patient does have an MR angiogram of the neck. Basilar Artery: Normal. There is no basilar tip aneurysm or aneurysm arising from the vertebral-basilar branches. Posterior Communicating Arteries: There is a small normal right posterior communicating artery and no discernible left posterior communicating artery. Anterior Communicating Artery: Normal anterior communicating artery. A1-A2 Segments of Anterior Cerebral Arteries: Normal. The left A1 segment is diminutive in size but normal. M1-M3 Segments of Middle Cerebral Arteries: Normal. Reading: Normal MR angiogram scan of the [place] [facility] [place]. Dictated By: 04/18/18 2840 MAINE CANNON MD. Signed By: 04/18/18 1517 MAINE CANNON MD. [address] [facility] [place] [address] PH: DD: [phone] FAX: [phone] ~DIAGNOSTIC IMAGING REPORT~ Patient: MIRANDA BARAJAS : 1950 Sex: M Age: 68 Exam Name: MRI Brain WO Contrast Exam Date: 04/18/18 Report # : [id number] CPT Code: 58992 EMR/MR #: [id number] Ordering: RUPESH LEY Admiting: RUPESH LEY DO Primary: NONE,NONE Attending: RUPESH LEY DO Signed MRI BRAIN SCAN WITHOUT IV CONTRAST, 04/18/2018 12:10 PM: Clinical History: Syncope. Prior Exam: None at this facility. Comparison Exam: CT head scan without contrast from earlier today. Sequences: Sagittal T1; Axial WILMER T2 and FLAIR. Axial diffusion weighted images with ADC mapping. 4th Ventricle: Normal. 3rd Ventricle: Mildly dilated, but normal for age. Lateral Ventricles: Mildly dilated, but normal for age. Sella: Normal size and normal pituitary gland. Cerebrum: Normal. No evidence of an acute hemorrhagic or bland infarct. No small vessel ischemic disease. Cerebellum: Normal. No cerebellopontine angle mass. Cerebellar Tonsils: Normal position. Brainstem: Normal. Diffusion Weighted Imaging: Normal. Atrophy: Mild cerebellar and cerebral atrophy. Extracerebral Mantles/Midline Shift: No extracerebral mantle or dural lesion. No midline shift. Sinuses: Left maxillary sinus mucosal thickening with some hypointensities present most likely representing small polyps. Readin. No evidence of an acute hemorrhagic or bland infarct. No small vessel ischemic disease. 2. Mild cerebral and cerebellar atrophy. 3. Normal diffusion weighted imaging with ADC mapping. Dictated By: 04/18/18 1625 MAINE CANNON MD. Signed By: 04/18/18 1634 MAINE CANNON MD. [address] [facility] [facility] [place] [address] PH: DD: [phone] FAX: [phone] ~DIAGNOSTIC IMAGING REPORT~ ---- Patient: MIRANDA BARAJAS Bijan : 1950 Sex: M Age: 68 Exam Name: CT Head WO Contrast Exam Date: 04/18/18 Report # : [id number] CPT Code: 58666 EMR/MR #: [id number] Ordering: Jared De Dios Admiting: Primary: NONE,NONE Attending: Signed CT HEAD SCAN WITHOUT IV CONTRAST, 04/18/2018 8:21 AM : Clinical History: Headache. Dizziness. Syncope. The patient is anticoagulated. Previous Exam: 07/17/2011. Technique: Performed from the foramen magnum to vertex without IV contrast. Contrast Volume: None. 4th Ventricle: Normal. 3rd Ventricle: Mildly dilated, but normal for age. Lateral Ventricles: Mildly dilated, but normal for age. Sella: Normal size and normal pituitary gland. Cerebrum: Normal. No acute intracranial hemorrhagic focus. No acute bland infarct. No small vessel ischemic disease. Cerebellum: Normal. No cerebellopontine angle mass. Normal cerebellar tonsillar position. Brainstem: Normal. Atrophy: Mild cerebellar and cerebral atrophy. Extracerebral Mantles/Midline Shift: No extracerebral mantle or dural lesion. No midline shift. Sinuses: Mucosal thickening of the left maxillary sinus. Skull: Intact. READIN. There is no acute intracranial hemorrhagic focus. No acute bland infarct. 2. Mild cerebellar and cerebral atrophy. Dictated By: 04/18/18 0928 MAINE CANNON MD. Signed By: 04/18/18 0940 MAINE CANNON MD. Patient Problems - Patient Problem List (1) Syncope Current Visit: Yes Status: Acute Code(s): R55 - Syncope and collapse Qualifiers: Syncope type: unspecified Qualified Code(s): R55 - Syncope and collapse Category: Medical (2) Poorly controlled type 2 diabetes mellitus Current Visit: Yes Status: Acute Code(s): E11.65 - Type 2 diabetes mellitus with hyperglycemia Category: Medical (3) History of DVT of lower extremity Current Visit: Yes Status: Acute Code(s): Z86.718 - Personal history of other venous thrombosis and embolism Category: Medical
[2018-04-19] MEDS: Sodium Chloride 0.9% 1,000 ML PRIMARY IV SCH (13:01)
--- NOTE | 2018-04-19 15:25 | PDOC ---
General Adult HPI - General Chief Complaint: Chest Pain Stated Complaint: SYNCOPAL EPISODE Date Seen by Provider: 04/18/18 Time Seen by Provider: 10:15 Source: POSITIVE: Patient, RN/MD Exam Limitations: POSITIVE: No limitations Nurse's Notes Reviewed & Considered: Yes - History of Present Illness Initial Comment: The patient is a 68-year-old male. His chief complaint is syncopal episodes. He's also complained of some chest pain with radiation into his back. He states that 6 days ago he was sitting on the commode and he "passed out". He states he was not straining when this happened. He states that he did not fall off the commode. He states he had a similar episode, also while sitting on the commode, 5 days ago. 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 He states he's had some discomfort in the thoracolumbar area. No fevers or chills. No associated sensory or motor symptoms. No difficulty speaking. No visual changes or EENT changes. No dyspnea. 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 Patient initially was seen by Dr. Douglass, who was the emergency room physician on duty at the time the patient presented to the emergency room. Dr. Douglass ordered electrocardiogram, chest x-ray, CT of the head, troponin, CMP, INR, and CBC. High assumed care of the patient at change of shift at 0900. Have you received a tetanus shot in the past 10 years?: Unknown Body Location Affected: REPORTS: Other (Syncope; some chest discomfort) Timing: REPORTS: Abrupt (As above) Duration: Other (Syncopal episodes last less than a minute) Severity: Moderate Quality: REPORTS: "Pain" (Chest and thoracolumbar discomfort) Context: REPORTS: Sitting, Activity (2 episodes while on the commode and one episode while operating a backhoe, as above) Modifying Factors: improves with: Nothing Similar Symptoms Previously: Yes (patient states he had a syncopal episode 2 years ago) Recent Care Received: REPORTS: Recently Seen (As above) Any Prior Injuries Related to Current Complaint?: No - Patient Home Medications Home Medications: Home Medications rivaroxaban 20 mg tablet 20 mg PO QDAY #30 tab 03/10/18 Multivitamin Tab [Thera Tab] 1 tab PO DAILY 04/19/18 metFORMIN Tab [Glucophage Tab] 500 mg PO BID MEALS #60 tab 04/19/18 - Patient Allergies Allergies/Adverse Reactions: Allergies Allergy/AdvReac Type Severity Reaction Status Date / Time latex Allergy Severe eczema Verified 04/18/18 08:23 ciprofloxacin Allergy Intermediate RASH Verified 04/18/18 08:23 Penicillins Allergy Intermediate ITCHING Verified 04/18/18 08:23 Past Medical History - heen HEENT History: Other (please comment) Additional HEENT History: Rt eye surgery Cardiovascular History: DVTs Respiratory History: Denies History Gastrointestinal History: Denies History Genitourinary History: Denies History Endocrine History: Denies History Musculoskeletal History: Joint Pain Prosthesis or Implant: No Neurological History: Denies History Blood Disorders: Denies History Additional Blood Disorders History: PULM EMBOLISM Psychiatric History: Denies History Male Reproductive History: Denies History Cancer History: Denies History In Past Year Been Physically Harmed or Verbally Threatened: No History of MDRO: No Tobacco Use: Former Smoker (Quit in 1979) Alcohol Use: Rarely Type of alcohol normally used: Beer, Hard Liquor In the Past 12 Months, Have Used or Abuse Any Substance: None Previous Surgical History: Yes Type / Date of Surgery: 3x KNEE, EYE, CTR LT WRIST, LT THUMB REATTACHED, LASER TO LT LEG FOR DVT 08/25, VEIN STRIPPING RT LEG. Anesthesia Reactions: No Malignant Hyperthermia: No Family History of Malignant Hyperthermia: No Significant Family History: No pertinent family hx Past Medical History Reviewed: Reviewed - No Changes ROS - Limitations ROS Limitations: No Limitations Constitution: REPORTS: Denies Symptoms Cardiovascular: REPORTS: Chest Pain Respiratory: REPORTS: Denies Resp Symptoms Neurological: REPORTS: Fainting Gastrointestinal: REPORTS: Denies GI Symptoms Endocrine: REPORTS: Denies Symptoms Musculoskeletal: REPORTS: Denies MS Symptoms Genitourinary: REPORTS: Denies Symptoms Eyes: REPORTS: Denies Symptoms ENT: REPORTS: Denies Symptoms Skin: REPORTS: Denies Skin Symptoms Lympathic: REPORTS: Denies Lympathic Symptoms Immunologic: POSITIVE: Denies Symptoms Psychiatric: POSITIVE: Denies Psych Symptoms General Adult Exam - General Appearance General Appearance: POSITIVE: Alert, Cooperative, No Acute Distress, No Evidence of Trauma - HEENT HEENT: POSITIVE: Head Inspection Nml, Eyes Inspection Nml, Ears Inspection Nml, Nose Inspection Nml, Oral/Dental Inspect. Nml, Pharynx Inspect. Nml, PERRL, EOMI - Pupils Pupil Size: 3 mm: Bilateral (PERRLA) - Neck Neck: POSITIVE: Normal Inspection, Thyroid Normal - Respiratory Respiratory: POSITIVE: No Respiratory Distress, Breath Sounds Normal, Chest Non- Tender - Cardiovascular Cardiovascular: POSITIVE: Regular Rate & Rhythm, No Murmur, No Gallop, PMI Normal Peripheral Pulses: Radial (R): 2+, Radial (L): 2+ - Abdomen Abdomen: Soft: (All Quadrants), Normal Bowel Sounds: (All Quadrants), Denies Tenderness: (All Quadrants), No Splenomegaly: (All Quadrants), No Hepatomegaly: (All Quadrants), No Guarding: (All Quadrants), No Rebound: (All Quadrants), No Palpable Pulse: (All Quadrants), No Palpabale Mass: (All Quadrants), No Distention: (All Quadrants), No Rigidity: (All Quadrants) - Back Back: POSITIVE: Normal Inspection - Skin Skin: POSITIVE: Normal Color, Warm, Dry, No Rash - Extremities Extremity: Non-Tender: (All Extremities), Normal ROM: (All Extremities), Normal Inspection: (All Extremities) - Neurological / Psychological Neurological: POSITIVE: Affect Apporpriate, 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 Lab Results Reviewed by Me: Yes (nonfasting blood glucose 321) Lab Results:: Laboratory Results 04/18/18 04/18/18 04/18/18 08:10 08:10 08:20 WBC 6.30 RBC 5.82 Hgb 18.4 H Hct 51.4 MCV 88.3 MCH 31.6 H MCHC 35.8 RDW Std Deviation 41.7 RDW Coeff of Joao 13.0 Plt Count 161 MPV 10.7 Immature Gran % (Auto) 0.6 Neut % (Auto) 61.4 Lymph % (Auto) 31.1 [place] % (Auto) 4.6 L Eos % (Auto) 1.7 Baso % (Auto) 0.6 Immature Gran # (Auto) 0.04 Neut # (Auto) 3.86 Lymph # (Auto) 1.96 [place] # (Auto) 0.29 L Eos # (Auto) 0.11 Baso # (Auto) 0.04 WBC Morphology Comment Normal morphology Plt Morphology Comment Normal morphology RBC Morph Comment Normal morphology PT INR Sodium Potassium Chloride Carbon Dioxide Anion Gap BUN Creatinine Estimated GFR BUN/Creatinine Ratio Glucose Mean Blood Glucose 299.281 Hemoglobin A1c 11.57 H Calculated Osmolality Calcium Magnesium Total Bilirubin AST ALT Alkaline Phosphatase Troponin I Handheld Total Protein Albumin Globulin Albumin/Globulin Ratio TSH 3.06 Free T4 1.23 04/18/18 04/18/18 04/18/18 08:20 08:20 08:20 WBC RBC Hgb Hct MCV MCH MCHC RDW Std Deviation RDW Coeff of Joao Plt Count MPV Immature Gran % (Auto) Neut % (Auto) Lymph % (Auto) [place] % (Auto) Eos % (Auto) Baso % (Auto) Immature Gran # (Auto) Neut # (Auto) Lymph # (Auto) [place] # (Auto) Eos # (Auto) Baso # (Auto) WBC Morphology Comment Plt Morphology Comment RBC Morph Comment PT 10.2 INR 1.00 Sodium 141 Potassium 4.1 Chloride 105 Carbon Dioxide 24 Anion Gap 12 BUN 23 H Creatinine 1.0 Estimated GFR > 60 BUN/Creatinine Ratio 23.00 H Glucose 321 H Mean Blood Glucose Hemoglobin A1c Calculated Osmolality 307.0 H Calcium 9.9 Magnesium 2.0 Total Bilirubin 1.0 AST 36 ALT 30 Alkaline Phosphatase 96 Troponin I Handheld 0.000 Total Protein 6.8 Albumin 4.2 Globulin 2.6 Albumin/Globulin Ratio 1.60 TSH Free T4 CBC and BMP: 04/18/18 08:20 04/18/18 08:20 EKG Interpreted/Reviewed By Me:: Yes (normal sinus rhythm; normal) EKG Interpretation:: POSITIVE: Normal Sinus Rhythm, Normal Rate, Normal Intervals, Normal [place], Normal QRS, Normal ST/T - Patient's Progress Pain Medication Addressed: POSITIVE: Not Applicable School/Work Release Addressed: POSITIVE: Not Applicable Re-Examine Time: 10:40 Re-Examine Comment: Patient advised that I'm not completely sure of the source of his symptoms. Patient does have a nonfasting blood glucose of 321 and his symptoms may be referable to undiagnosed diabetes mellitus. Case discussed with hospitalist entry level installation technician, and patient is admitted by Dr. Arnold for further evaluation and treatment. Vital signs remain stable and patient asymptomatic throughout his stay in the emergency room. Status: POSITIVE: Unchanged, Re-Examined Antibiotics Given: No CVA/Syncope: POSITIVE: EKG. NEGATIVE: t-PA Considered - Consult Consult (If Yes, Name of Consulting MD & Time Called): Yes (Dr. Arnold, hospitalist, [id number]) Consulting MD will see pt:: POSITIVE: [facility] [place] Admit Counseled: POSITIVE: Patient, Family, RE: Lab Results, RE: Radiology Results, RE: DX, RE: Need for F/U Patient Care Time - Estimated PCT Patient Care Time (In Minutes): 40 Vital Signs - VS Reviewed Vital Signs Reviewed: Yes Discharge Clinical Impression: Syncope Qualifiers: Syncope type: unspecified Qualified Code(s): R55 - Syncope and collapse Chest pain Qualifiers: Chest pain type: unspecified Qualified Code(s): R07.9 - Chest pain, unspecified Discharge Disposition: Admit to Inpatient Condition: Stable Date Decision to Admit to Inpatient: 04/18/18 Time Decision to Admit to Inpatient: 10:40
[2018-04-19] MEDS ORDERED: Insulin Glargine SoloStar Inj 100 UNIT/ML INSULN.PEN SUBCUT SCH (21:00)
[2018-04-20] MEDS ORDERED: metFORMIN 500 MG TABLET PO SCH (07:00)
== END 2018-04-19 14:42 | disposition home or self-care (01) ==
LOC: MED/SURG 08:02 → ER 08:02 → MED/SURG 11:32
PROVIDERS: ADMIT Family Medicine; ATTEND Family Medicine